=== PATIENT | male | born 1935 | race Caucasian/White ===

== ENCOUNTER 2019-04-17 21:01 | Inpatient (IN) | payer OTHER ==
[~2019-04-17] VITALS: Ht 182.9 cm; Wt 119.6 kg
[2019-04-17] MEDS ORDERED: ASPIRIN 325 MG TABLET PO ONE (21:05)
--- NOTE | 2019-04-17 21:09 | NUR ---
[facility] OPERATOR CALLED IN AT 2037 CARDS PAGED AT 2039 CODE CARDIAC CALLED AT 2055 PATIENT REG AT [id number]
[2019-04-17] MEDS ORDERED: METO25TA35 PO (21:13)
[2019-04-17] MEDS ORDERED: LISI-167 PO (21:13)
[2019-04-17] MEDS ORDERED: APIX5TAB PO (21:13)
[2019-04-17] MEDS ORDERED: ATOR-2 PO (21:13)
[2019-04-17] MEDS ORDERED: METF500T17 PO (21:13)
[2019-04-17] MEDS ORDERED: GLIP10TA24 PO (21:13)
[2019-04-17 21:19] LABS: BASOPHILS # (AUTO) 0.04 x10^3/uL (0-0.1); BASOPHILS % (AUTO) 1 % (0-1); EOSINOPHILS # (AUTO) 0.11 x10^3/uL (0-0.4); EOSINOPHILS % (AUTO) 2 % (1-7); LYMPHOCYTES # (AUTO) 1.86 x10^3/uL (1-3.4); LYMPHOCYTES % (AUTO) 25 % (22-44); MD NO; MEAN CORPUSCULAR HEMOGLOBIN 32.2 pg (27.5-34.5); MEAN CORPUSCULAR HGB CONC 33.2 g/dL (33.2-36.2); MEAN CORPUSCULAR VOLUME 96.9 fL (81-97); MEAN PLATELET VOLUME 9.6 fL (7.4-10.4); MONOCYTES # (AUTO) 0.52 x10^3/uL (0.2-0.8); MONOCYTES % (AUTO) 7 % (2-9); NEUTROPHILS # (AUTO) 4.91 x10^3/uL (1.8-6.8); NEUTROPHILS % (AUTO) 66 % (42-75); PLATELET COUNT 223 x10^3/uL (130-400); RED CELL DISTRIBUTION WIDTH 12.8 % (9.4-14.8)
[2019-04-17] MEDS ORDERED: PLEASE ENTER HEIGHT AND WEIGHT MC SCH (21:30)
[2019-04-17] MEDS ORDERED: PLEASE ENTER ALLERGIES MC SCH (21:30)
[2019-04-17 21:31] LABS: INTERNATIONAL NORMALIZED RATIO 1.01 (0.93-1.1); PROTHROMBIN TIME 10.7 Seconds (9.6-11.5)
--- NOTE | 2019-04-17 21:36 | NUR ---
REPORT TO JOSEF GARZA.
--- NOTE | 2019-04-17 21:36 | NUR ---
DR ANGELA IN ROOM. AT THIS TIME CODE CARDIAC CANCELLED. PT TO BE EVALED BY WILFRED JESSICA
[2019-04-17 21:38] LABS: TROPONIN I 0.937 ng/mL (0.000-0.045)
--- NOTE | 2019-04-17 22:15 | NUR ---
ASA REFUSED, PT RECEIVED AT [facility] PRIOR TO TRANSPORT TO [facility] ED.
--- NOTE | 2019-04-17 22:51 | NUR ---
PT RESTING ON JOSEPH WITH FAMILY AT BS. CALL LIGHT WITHIN REACH. UPDATED ON POC.
--- NOTE | 2019-04-17 23:24 | NUR ---
HOSPITAL BED ORDERED FOR PT AT THIS TIME.
[2019-04-18] MEDS ORDERED: NITROGLYCERIN 0.4 MG BOTTLE (25 TABS) SL PRN (01:30)
[2019-04-18] MEDS ORDERED: hydrALAzine 20 MG/ML, 1ML IVPush PRN (01:30)
[2019-04-18] MEDS ORDERED: ACETAMINOPHEN 325 MG TABLET PO PRN (01:30)
[2019-04-18] MEDS ORDERED: MAGNESIUM SULFATE/D5W 100 ML IV ONE (01:30)
[2019-04-18] MEDS ORDERED: morphine SULFATE 10 MG/ML, 1ML IVPush PRN (01:30)
[2019-04-18] MEDS ORDERED: ONDANSETRON 2MG/ML, 2ML IVPush PRN (01:30)
--- NOTE | 2019-04-18 02:00 | NUR ---
FIRST ATTEMPT TO CALL REPORT.
[2019-04-18 02:10] LABS: TROPONIN I 0.941 ng/mL (0.000-0.045)
[2019-04-18 02:45] VITALS: BP 123/72
[2019-04-18] MEDS: BENZONATATE 100 MG CAPSULE PO SCH ×4 (03:10→20:35)
[2019-04-18 05:22] LABS: ANION GAP 5 mmol/L (5-15); CALCIUM 8.8 mg/dL (8.5-10.1); CHLORIDE 106 mmol/L (98-107); CREATININE 0.82 mg/dL (0.7-1.3)
[2019-04-18 05:23] LABS: BASOPHILS # (AUTO) 0.03 x10^3/uL (0-0.1); BASOPHILS % (AUTO) 1 % (0-1); EOSINOPHILS # (AUTO) 0.14 x10^3/uL (0-0.4); EOSINOPHILS % (AUTO) 3 % (1-7); LYMPHOCYTES # (AUTO) 1.52 x10^3/uL (1-3.4); LYMPHOCYTES % (AUTO) 28 % (22-44); MD NO; MEAN CORPUSCULAR HEMOGLOBIN 32.5 pg (27.5-34.5); MEAN CORPUSCULAR HGB CONC 33.2 g/dL (33.2-36.2); MEAN CORPUSCULAR VOLUME 97.9 fL (81-97); MEAN PLATELET VOLUME 9.1 fL (7.4-10.4); MONOCYTES # (AUTO) 0.44 x10^3/uL (0.2-0.8); MONOCYTES % (AUTO) 8 % (2-9); NEUTROPHILS % (AUTO) 61 % (42-75); PLATELET COUNT 171 x10^3/uL (130-400); RED BLOOD COUNT 3.94 x10^6/uL (4.38-5.82)
[2019-04-18] MEDS ORDERED: ASPIRIN 325 MG TABLET EC PO SCH (06:00)
[2019-04-18] MEDS ORDERED: METOPROLOL TARTRATE 25 MG TAB PO SCH (09:00)
[2019-04-18 09:06] VITALS: BP 115/67
[2019-04-18 09:50] VITALS: BP 118/67
[2019-04-18] MEDS: APIXABAN 5 MG TABLET PO SCH ×2 (09:50→20:35)
[2019-04-18] MEDS: LISINOPRIL 5 MG TABLET PO SCH (09:50)
[2019-04-18] MEDS ORDERED: REGADENOSON 0.4 MG/5 ML SYRINGE ONE (10:05)
[2019-04-18 10:43] LABS: TROPONIN I 0.703 ng/mL (0.000-0.045)
[2019-04-18 14:14] VITALS: BP 116/68
[2019-04-18 17:16] VITALS: BP 124/73
[2019-04-18] MEDS: CARVEDILOL 6.25 MG TABLET PO SCH (17:17)
[2019-04-18 18:24] VITALS: BP 112/65
[2019-04-18] MEDS ORDERED: ATORVASTATIN 40 MG TABLET PO SCH (21:00)
[2019-04-19 04:00] VITALS: BP 105/72
[2019-04-19] MEDS ORDERED: ASPIRIN 81 MG TABLET EC PO SCH (06:00)
[2019-04-19] MEDS: CARVEDILOL 6.25 MG TABLET PO SCH (06:27)
[2019-04-19 06:32] LABS: CHOL/HDL RATIO 3.6; LDL/HDL RATIO 1.8 (0.5-3.0)
[2019-04-19 07:49] VITALS: BP 109/64
[2019-04-19 08:46] VITALS: BP 114/68
[2019-04-19] MEDS: LISINOPRIL 5 MG TABLET PO SCH (08:47)
[2019-04-19] MEDS: BENZONATATE 100 MG CAPSULE PO SCH ×2 (08:47→16:00)
[2019-04-19] MEDS: APIXABAN 5 MG TABLET PO SCH (08:47)
[2019-04-19 13:33] VITALS: BP 95/57
[2019-04-19] MEDS ORDERED: ASPI81TA45 PO (13:35)
[2019-04-20] MEDS ORDERED: METOPROLOL SUCCINATE 25 MG TAB.ER.24H PO SCH (06:00)
== END 2019-04-19 19:30 | disposition home or self-care (01) | DRG 280 ==
LOC: ED 22:32 → EDIP 22:55 → 5SO 04-18 02:11
PROVIDERS: ADMIT Family Medicine; ATTEND Internal Medicine
DX: I21.4 Non-ST elevation (NSTEMI) myocardial infarction (principal); I50.23 Acute on chronic systolic (congestive) heart failure; D68.69 Other thrombophilia; J96.10 Chronic respiratory failure, unspecified whether with hypoxia or hypercapnia; E11.9 Type 2 diabetes mellitus without complications; E66.9 Obesity, unspecified; E78.5 Hyperlipidemia, unspecified; I11.0 Hypertensive heart disease with heart failure; I25.10 Atherosclerotic heart disease of native coronary artery without angina pectoris; J06.9 Acute upper respiratory infection, unspecified; I48.0 Paroxysmal atrial fibrillation; Z79.01 Long term (current) use of anticoagulants; Z86.711 Personal history of pulmonary embolism; Z79.84 Long term (current) use of oral hypoglycemic drugs; Z87.891 Personal history of nicotine dependence; Z95.1 Presence of aortocoronary bypass graft; Z99.81 Dependence on supplemental oxygen; Z68.35 Body mass index [BMI] 35.0-35.9, adult
CPT/HCPCS: 36415; 93017; 99285; C8929; 71045; 78452; 80047; 80048; 80061; 83036; 83735; 84443; 84484; 85025; 85610; 85730; 93005; G0378; J2785; Q9957; A9502